=== PATIENT | female | born 1990 | race Two or more races ===

== ENCOUNTER 2017-12-18 08:20 | Emergency (ER) | payer BC, OTHER ==
[2017-12-18 08:42] VITALS: BP 130/73; PULSE 74; TEMP 98.2; BMI 26.2
--- NOTE | 2017-12-18 09:36 | PDOC ---
History of Present Illness - General Chief Complaint: Pain Stated Complaint: LT THIGH BRUISING Time Seen by Provider: 12/18/17 08:56 History Source: Patient Exam Limitations: No Limitations - History of Present Illness Initial Comments: 12/18/17 09:36 27 yr female with history of ITP, DVT 2 yrs ago , hypothyroidism states yesterday she was lying down with her left leg bent for about 1-2hrs then noticed bruising to the left anterior thigh. no other areas of bruising, no bleeding gums, no weakness or fatigue. pt does not take blood thinners. recently stopped taking OCP. Timing/Duration: reports: yesterday Severity: Yes: mild Location: reports: extremities (left anterior thigh ) Past History - Past Medical History Allergies/Adverse Reactions: Allergies Allergy/AdvReac Type Severity Reaction Status Date / Time No Known Allergies Allergy Verified 12/18/17 08:37 Home Medications: Ambulatory Orders Levothyroxine [Synthroid -] 88 mcg PO DAILY 03/31/13 Anemia: Yes (ITP) COPD: No Thyroid Disease: Yes (HYPER/THYROID STORM) Other medical history: EVERT-BLANCA SYNDROME, SRGJORJEN SYNDROME - Surgical History Abdominal Surgery: Yes (spleenectomy AGE 15) - Reproductive History (#): 0 Para: 0 - Immunization History Immunization Up to Date: Yes - Suicide/Smoking/Psychosocial Hx Smoking Status: No Smoking History: Never smoked Have you smoked in the past 12 months: No Number of Cigarettes Smoked Daily: 0 Hx Alcohol Use: No Drug/Substance Use Hx: No Substance Use Type: None Hx Substance Use Treatment: No *Physical Exam - Vital Signs Last Vital Signs Temp Pulse Resp BP Pulse Ox 98.2 F 74 19 130/73 100 12/18/17 08:37 12/18/17 08:37 12/18/17 08:37 12/18/17 08:37 12/18/17 08:37 - Physical Exam General Appearance: Yes: Nourished, Appropriately Dressed HEENT: positive: EOMI, TANVI, Normal ENT Inspection, TMs Normal, Pharynx Normal Neck: positive: Supple. negative: Tender Respiratory/Chest: positive: Lungs Clear, Normal Breath Sounds. negative: Chest Tender Cardiovascular: positive: Regular Rhythm, Regular Rate Gastrointestinal/Abdominal: positive: Normal Bowel Sounds, Soft. negative: Tender Extremity: positive: Normal Capillary Refill, Normal Inspection, Normal Range of Motion Integumentary: positive: Normal Color, Dry, Warm, Bruising (left anterior thigh [id number] area of petichiae, bruising non tender) ED Treatment Course - LABORATORY CBC & Chemistry Diagram: 12/18/17 09:28 12/18/17 09:28 Medical Decision Making - Medical Decision Making 12/18/17 09:38 cc: bruising to left anterior thigh no weakness, no bruising from any other areas will check labs 12/18/17 17:48 labs WNL dc home with strict follow up next week pt agrees with plan all questions asked and answered pt stable on discharge. *DC/Admit/Observation/Transfer Diagnosis at time of Disposition: Contusion of leg - Discharge Dispostion Disposition: HOME Condition at time of disposition: Good - Referrals Referrals: ON STAFF,NOT [Primary Care Provider] - - Patient Instructions Additional Instructions: please follow with your silver cleaner or your PMD for follow up apply ice to the area of bruising every 2hrs fro 15 minutes return to ER for any worsening symptoms - Post Discharge Activity
[2017-12-18 09:38] LABS: BASO % 1.4 % (0-2.0); EOS % 3.1 % (0-4.5); HEMATOCRIT 41.7 % (32.4-45.2); HEMOGLOBIN 13.9 GM/dL (10.7-15.3); LYMPH % 30.3 % (8-40); MCH 29.7 pg (25.7-33.7); MCHC 33.4 g/dl (32.0-36.0); MEAN CELL VOLUME 88.8 fl (80-96); MEAN PLT VOLUME 7.5 fl (7.5-11.1); MONO % 8.4 % (3.8-10.2); NEUT % 56.8 % (42.8-82.8); PLATELET COUNT 422 K/MM3 (134-434); RDW 12.9 % (11.6-15.6); WHITE BLOOD COUNT 5.5 K/mm3 (4.0-10.0)
[2017-12-18 11:42] LABS: ALBUMIN 3.9 g/dl (3.4-5.0); ANION GAP 8 (8-16); BLOOD UREA NITROGEN 12 mg/dL (7-18); CALCIUM 9.1 mg/dL (8.5-10.1); CHLORIDE 105 mmol/L (98-107); CO2 27 mmol/L (21-32); CREATININE 0.6 mg/dL (0.55-1.02); GLUCOSE,RANDOM 81 mg/dL (74-106); POTASSIUM 4.1 mmol/L (3.5-5.1); SGPT/ALT 27 U/L (12-78); SODIUM 140 mmol/L (136-145)
[2017-12-18 11:54] LABS: ALK PHOS 54 U/L (45-117); BILIRUBIN,TOTAL 0.4 mg/dL (0.2-1.0); SGOT/AST 24 U/L (15-37); TOT PROT 8.1 g/dl (6.4-8.2)
== END 2017-12-18 12:37 | disposition home or self-care (01) ==
LOC: JERFT 08:20
DX: S70.12XA Contusion of left thigh, initial encounter (principal); X58.XXXA Exposure to other specified factors, initial encounter; Y93.89 Activity, other specified; Y92.9 Unspecified place or not applicable
CPT/HCPCS: 36415; 80053; 84703; 85025; 85730; 99281-25